=== PATIENT | female | born 1955 | race Caucasian/White ===

== ENCOUNTER 2023-11-11 06:42 | Emergency (ER) | payer BC, SELFPAY ==
[2023-11-11 06:43] VITALS: BP 165/94
--- NOTE | 2023-11-11 08:02 | ED.GENMED ---
History of Present Illness
General
Chief Complaint: Musculo-Skeletal Complaint
Source: patient
Exam Limitations: none
Time Seen by Provider: 11/11/23 06:57
Nursing documentation reviewed up to this point in time: agreed with
Travel History
Have you had any contact with someone who has COVID-19?: No
Do you have any symptoms of coronavirus? Fever > 100 degrees, chills, cough, shortness of breath, sore throat, loss of taste or smell, muscle aches, or headache?: No
History of Present Illness
History of Present Illness:
68-year-old female with past medical history of hepatitis C, cancer currently on chemo presenting to the emergency department today after a trip and fall over her dog this morning landing on her left knee and left hand denies any head trauma no neck
pain no numbness or weakness no additional symptoms or concerns. Pain is mainly to the fifth and fourth finger of the left hand. There is a superficial scrape to the left knee but able to walk and ambulate normally.
Past History
Past History
ED Past Medical History: Other (IBS), Other (hepatitis C) and Other (Ovarian cancer)
ED Past Surgical History: Orthopedic (right knee, right hip) and Other (breast implants)
Social History
Tobacco: Non-smoker
Alcohol: None
Drug: None
Personal:
Living: with family
Review of Systems
Review of Systems
Allergies reviewed?: Yes
All Other Systems: ROS reviewed and negative except as documented in HPI and ROS
Phy Exam
Physical Exam
Physical Exam:
GENERAL: Alert , in no apparent distress
EYE: pupils equal and reactive
NECK: Supple, no significant adenopathy.
ENT: o/p clr, mmm.
CARDIAC: Regular rate and rhythm .
LUNGS: Clear breath sounds bilaterally, no acute respiratory distress, no wheezes/rales/rhonchi
ABDOMEN: Soft, without focal tenderness, no r/g, no cvat
NEUROLOGICAL: Alert and oriented, no focal neuro deficits
SKIN: Superficial abrasion to the left anterior knee roughly 2 cm x 2 cm. Warm and dry, skin intact.
MUSCULOSKELETAL: Swelling and tenderness palpation to the left fifth and fourth digit with increased pain with movement at the MCP. Otherwise no tenderness throughout the hand no tenderness throughout the wrist or forearm. No edema, well perfused.
PSYCH: Normal and appropriate interaction.
Course
Orders/Labs/Results
Orders:
Orders
11/11/23 06:49
CR Hand - Left Min 3 Views Urgent
Comment:
Reason For Exam: fall walking dog
11/11/23 07:48
Cephalexin Monohydrate [Keflex] 500 mg PO NOW STA
11/11/23 08:07
Acetaminophen [Tylenol] 650 mg PO NOW STA
Vital Signs
Initial and Last Documented VS:
Initial Vital Signs
Temp Pulse Resp BP Pulse Ox
98.7 F 89 16 165/94 100
11/11/23 06:43 11/11/23 06:43 11/11/23 06:43 11/11/23 06:43 11/11/23 06:43
Last Documented Vital Signs
Temp Pulse Resp BP Pulse Ox
98.7 F 89 16 165/94 100
11/11/23 06:43 11/11/23 06:43 11/11/23 06:43 11/11/23 06:43 11/11/23 06:43
Procedures
Splinting/Sling Placement
Left Hand:
Procedure completed by: Myself
Pre-splint extermity exam: neurovascular intact
Type of splint: ulnar gutter
Splint material: fiberglass
Splint checked by provider?: Yes
Type of sling: sling fitted
Normal distal neurovascular exam?: Yes
MDM/Problems Addressed
MDM/Problems Addressed:
68-year-old female presenting to the emergency department today with concerns of left knee discomfort after a fall this morning over her dog. Tenderness mainly to the base of the fifth and fourth fingers. X-ray showing proximal fracture to the
fifth and fourth digit. Patient placed in an ulnar gutter and given a sling. Otherwise normal lower extremity. Does have superficial abrasion this was cleaned thoroughly bandaged. Patient was given prophylactic antibiotics due to patient's chemo
status. Patient will follow-up closely with orthopedics. Return precautions given.
*Critical Care Note
Total Time (30-74mins, 75-104mins- exclusive of procedures): Not Applicable
ED Attending Note
-
Portions of this chart may have been created with voice recognition software.� Occasional wrong word or��sound alike� substitutions may have occurred due to the inherent limitations of voice recognition software.
Discharge Plan
Departure
Patient Disposition: Home (Routine Discharge)
Date of Disposition: 11/11/23
Time of Disposition: 08:37
Patient with high blood pressure during this ER visit?: No
Condition: Good
Covid-19: Not Applicable
Discharge Problem:
Finger fracture, left, Abrasion of knee
Instructions: Finger Fracture ED
Prescriptions:
New
cephalexin 500 mg capsule
500 mg PO TID 3 Days Qty: 9 0RF
No Action
cetirizine 10 MG tablet
10 mg PO DAILY
lorazepam 1 MG tablet
1 mg PO BID
fluticasone propionate 1 SPRAY spray,suspension
2 spray intranasal PRN PRN (Reason: nasal congestion)
ondansetron HCl 8 mg Tablet
8 mg PO Q8H PRN (Reason: nausea)
acetaminophen 500 mg Tablet
500 - 1,000 mg PO Q6H PRN (Reason: pain)
famotidine [Pepcid] 20 mg Tablet
20 mg PO DAILY
calcium citrate 200 mg (950 mg) Tablet
400 mg PO BID
Align 4 mg Capsule
4 mg PO DAILY
Referrals:
Elian Feng MD [Family Provider] -
Rocio Tejada I., DO [Active] - Follow up in 5-7 days
Activity Restrictions/Additional Instructions:
You came to the emergency department today with concerns of left hand discomfort after a fall. You are found have a fracture at the base of your third fourth and fifth fingers. Please leave the splint in place and follow-up closely with
orthopedics within a week or so. Return to the emergency department for any worsening, new or concerning symptoms. Additionally please take the Keflex 3 times daily over the next 3 days to reduce risk of infection of the abrasion of your left
knee. Please keep your left knee clean and covered.
Interventions
Interventions:
*Risk Screen - Suicide Last Done: 11/11/23 06:43
*General Assessment Last Done: 11/11/23 06:43
*Neglect/Abuse Screening Last Done: 11/11/23 06:43
ED- Fall Risk Assessment Last Done: 11/11/23 07:14
*ED COVID-19 Vaccine History Last Done: 11/11/23 07:14
ED-Musculoskeletal Assessment Last Done: 11/11/23 07:14
Discharge Date and Time
Print Language: UKRAINIAN
[2023-11-11] MEDS: KEFLEX 500 MG PO (08:16)
[2023-11-11] MEDS: TYLENOL 650 MG PO (08:16)
== END 2023-11-11 09:10 | disposition home or self-care (01) ==
LOC: EMR 06:42
PROVIDERS: EMERGENCY PHYSICIAN Emergency Medicine; FAMILY PHYSICIAN Family Medicine
DX: S62.617A Displaced fracture of proximal phalanx of left little finger, initial encounter for closed fracture (principal); S80.212A Abrasion, left knee, initial encounter; W01.0XXA Fall on same level from slipping, tripping and stumbling without subsequent striking against object, initial encounter; M25.562 Pain in left knee; K58.9 Irritable bowel syndrome, unspecified; Z86.19 Personal history of other infectious and parasitic diseases; Z85.43 Personal history of malignant neoplasm of ovary
CPT/HCPCS: 99283; 29125; 73130

== ENCOUNTER 2023-11-12 07:11 | Emergency (ER) | payer BC, SELFPAY ==
[2023-11-12 07:26] VITALS: BP 142/90
--- NOTE | 2023-11-12 08:27 | ED.GENMED ---
History of Present Illness
General
Chief Complaint: Musculo-Skeletal Complaint
Source: patient and records
Exam Limitations: none
Time Seen by Provider: 11/12/23 07:59
Nursing documentation reviewed up to this point in time: agreed with
Travel History
Have you had any contact with someone who has COVID-19?: No
Do you have any symptoms of coronavirus? Fever > 100 degrees, chills, cough, shortness of breath, sore throat, loss of taste or smell, muscle aches, or headache?: No
History of Present Illness
History of Present Illness:
Patient is a 68-year-old female who presents to the emergency department complaining of left knee pain especially going down the stairs along with feeling as though her knee is giving out. Patient fell yesterday while walking her dog and actually
fractured a couple fingers and is to see orthopedics in follow-up. However patient returns because of increasing pain and feeling as though the knee is giving out.
Past History
Past History
ED Past Medical History: Other (IBS), Other (hepatitis C) and Other (Ovarian cancer)
ED Past Surgical History: Orthopedic (right knee, right hip) and Other (breast implants)
Social History
Tobacco: Non-smoker
Alcohol: None
Drug: None
Personal:
Living: with family
Review of Systems
Review of Systems
All Other Systems: Not applicable
Phy Exam
Physical Exam
Physical Exam:
Physical Exam
General: mild distress, alert and appropriate, well nourished, well hydrated
HENT: Normocephalic and atraumatic, supple with no lymphadenopathy, no thyromegaly
Eyes: Clear sclera, conjuctiva without injection
Neuro: Alert and oriented x 3, CN II - XII intact, no motor focality, no cerebellar dysfunction
Skin: no rash. Superficial abrasion lateral left knee
Psychiatric: well kept. interactive and cooperative
Extremities: No edema, cyanosis. Good and equal peripheral pulses. Left knee tender inferior laterally with abrasion just superior to it. Full range of motion. No instability in any planes. No hip tenderness or pain with
range of motion. No ankle tenderness or decreased range of motion.
Course
Orders/Labs/Results
Orders:
Orders
11/12/23 07:29
Knee, Left 4 or More Views [CR Knee - Left 4 Or More View*] Urgent
Comment: [email or web address]
Reason For Exam: left knee pain fell walking dog
Vital Signs
Initial and Last Documented VS:
Initial Vital Signs
Temp Pulse Resp BP Pulse Ox
98.2 F 82 16 142/90 98
11/12/23 07:26 11/12/23 07:26 11/12/23 07:26 11/12/23 07:26 11/12/23 07:26
Last Documented Vital Signs
Temp Pulse Resp BP Pulse Ox
98.2 F 82 16 142/90 98
11/12/23 07:26 11/12/23 07:26 11/12/23 07:26 11/12/23 07:26 11/12/23 07:26
*Radiology
Radiology exam reviewed: preliminary read by ED provider (Mild to moderate degenerative changes but no fracture)
*Pulse Oximetry
Patient hypoxic: no
*EKG
Interpreted by ED Provider?: NA
*Office Technician Interpretation
Rate: Office Technician- N/A
*Critical Care Note
Total Time (30-74mins, 75-104mins- exclusive of procedures): Not Applicable
ED Attending Note
-
Portions of this chart may have been created with voice recognition software.� Occasional wrong word or��sound alike� substitutions may have occurred due to the inherent limitations of voice recognition software.
Discharge Plan
Departure
Patient Disposition: Home (Routine Discharge)
Date of Disposition: 11/12/23
Time of Disposition: 08:33
Patient with high blood pressure during this ER visit?: Yes
Condition: Good
Covid-19: Not Applicable
Discharge Problem:
Injury of knee, left
Instructions: Knee Immobilizer (DC), Knee Sprain (DC), Using Cold for Pain, BLOOD PRESSURE
Prescriptions:
No Action
cetirizine 10 MG tablet
10 mg PO DAILY
lorazepam 1 MG tablet
1 mg PO BID
fluticasone propionate 1 SPRAY spray,suspension
2 spray intranasal PRN PRN (Reason: nasal congestion)
ondansetron HCl 8 mg Tablet
8 mg PO Q8H PRN (Reason: nausea)
acetaminophen 500 mg Tablet
500 - 1,000 mg PO Q6H PRN (Reason: pain)
famotidine [Pepcid] 20 mg Tablet
20 mg PO DAILY
calcium citrate 200 mg (950 mg) Tablet
400 mg PO BID
Align 4 mg Capsule
4 mg PO DAILY
cephalexin 500 mg capsule
500 mg PO TID 3 Days Qty: 9 0RF
Activity Restrictions/Additional Instructions:
Continue present medications and therapy. Follow-up with orthopedics as scheduled for your hand as well as her knee now.
Interventions
Interventions:
*ED COVID-19 Vaccine History Last Done: 11/12/23 07:26
Discharge Date and Time
Print Language: YAKUT
[2023-11-12 08:49] VITALS: BP 164/80
[2023-11-12 09:30] VITALS: BP 164/80
== END 2023-11-12 09:35 | disposition home or self-care (01) ==
LOC: EMR 07:11
PROVIDERS: EMERGENCY PHYSICIAN Emergency Medicine; FAMILY PHYSICIAN Family Medicine
DX: S89.92XA Unspecified injury of left lower leg, initial encounter (principal); W19.XXXA Unspecified fall, initial encounter; R03.0 Elevated blood-pressure reading, without diagnosis of hypertension
CPT/HCPCS: 99283; 29505; 73564

== ENCOUNTER → 2023-12-21 08:06 | Outpatient (REF) | payer BC, SELFPAY | LOC: MRI 3T 08:06 | PROVIDERS: ATTENDING PHYSICIAN Student in an Organized Health Care Education/Training Program; FAMILY PHYSICIAN Family Medicine | DX: M25.562 Pain in left knee (principal) | CPT/HCPCS: 73721 ==